=== PATIENT | female | born 2000 | race Caucasian/White ===

== ENCOUNTER 2021-04-29 10:36 | Emergency (ER) | payer OTHER, SELFPAY ==
[2021-04-29 10:53] VITALS: BP 111/78; PULSE 82; RESP 16; TEMP 36.6; O2SAT 99
[2021-04-29 10:55] VITALS: BP 111/78; PULSE 82; RESP 16; TEMP 36.6; O2SAT 99
--- NOTE | 2021-04-29 10:56 | ED.FEMALEGU ---
HPI - Female Genitourinary General Chief complaint: Urogenital-Female Stated complaint: uti Source: patient and RN notes reviewed Limitations: no limitations History of Present Illness HPI Narrative: The patient, previously healthy student, presents with 3-day history of urinary frequency, urgency, hesitancy and dysuria. No fever, low back pain, abdominal pain, N/V, vaginal discharge-but she would like available STD testing. Symptoms are mild, worse with micturition, unrelieved with OTC Azo; her last menstrual cycle was last week. Last UTI was several months ago-that she attributes to after her menses; patient reports sulfa allergy with her last treatment. Related Data Allergies Allergy/AdvReac Type Severity Reaction Status Date / Time amoxicillin Allergy Unknown Verified 04/29/21 10:55 Sulfa (Sulfonamide Allergy Unknown Verified 04/29/21 10:55 Antibiotics) Review of Systems Review of Systems: Narrative: General/Constitutional: No weight loss,fever Eyes: N0: Redness,discharge Ears/Nose/Throat: No: Epistaxis,ear discharge Respiratory: Denies: Hemoptysis Gastrointestinal: No Vomiting, Bleeding-rectal Skin: No Lumps, eruption Neurologic: No Focal Weakness,Sz Hematologic: Denies: Petechiae/Purpura Psychiatric: No: Suicida ideationl All Other Systems: Reviewed and Negative PMFSH Comments At time of signature, agree with nursing past medical, surgical, social and family history. There is no relevant family history pertinent to the presenting complaint Exam Narrative: Exam Narrative: General Appearance: Well appearing, No distress EYE: PERRLA, Conjunctiva clear Ears: External ear normal Nose: Normal nose Mouth/Throat: Normal appearing, Normal lips Neck: Supple Respiratory: Airway patent, No respiratory distress Cardiovascular: RRR Abdomen: Soft, Non-tender, No massess, Musculoskeletal: Full ROM Skin: Warm, Dry Neurological: A&O x3, CN II-X intact Psychiatric: Normal mood, Normal affect Course Vital Signs Vital signs: Vital Signs Temperature 98 F 04/29/21 10:53 Pulse Rate 82 04/29/21 10:53 Respiratory Rate 16 04/29/21 10:53 Blood Pressure 111/78 04/29/21 10:53 Pulse Oximetry 99 04/29/21 10:53 Temperature 98 F 04/29/21 10:55 Pulse Rate 82 04/29/21 10:55 Respiratory Rate 16 04/29/21 10:55 Blood Pressure 111/78 04/29/21 10:55 Pulse Oximetry 99 04/29/21 10:55 MDM - Female Genitourinary Lab Data Labs: Urine Glucose 1+ Reference Range: Negative Urine Bilirubin 2+ Reference Range: Negative Urine Ketone Trace Reference Range: Negative Urine Specific [place] 1.020 Reference Range:1.001-1.035 Urine Blood Trace Reference Range: Negative * * Urine pH 7.0 Reference Range: 5.0-9.0 Urine Protein 3+ Reference Range: Negative Urine Urobilinogen 8.0 Reference Range: 0.2-1.0 Urine Nitrate Positive Reference Range: Negative Urine Leukocyte 3+ Reference Range: Negative Urine Color [place] Reference Range: Yellow Urine Characteristics Cloudy Comment pt took azo
== END 2021-04-29 11:20 | disposition home or self-care (01) ==
PROVIDERS: Emergency Provider Emergency Medicine
DX: N30.90 Cystitis, unspecified without hematuria (principal)
CPT/HCPCS: 81003; 87077; 87086; 87088; 87491; 87591; 87661; 99214; G0463

== ENCOUNTER 2022-10-08 13:02 | Outpatient (CLI) | payer OTHER, SELFPAY ==
[2022-10-08 18:28] LABS: Basophils Percent Auto 0.7 % (0.2-1.2); Eosinophils Absolute Auto 0.1 K/mm3 (0-0.3); Eosinophils Percent Auto 1.2 % (0-4.4); Hemoglobin 13.3 g/dL (12.0-15.0); Immature Granulocyte Absolute 0.01 K/mm3 (0.00-0.031); Immature Granulocyte Percent A 0.2 % (0-0.5); Lymphocytes Absolute Auto 1.86 K/mm3 (0.9-3.2); Lymphocytes Percent Auto 44.9 % (18.3-44.2); Mean Corpuscular HGB Conc 33.3 g/dl (32-36); Mean Corpuscular Volume 87.1 fl (80-100); Mean Platelet Volume 11.2 fl (7.4-10.4); Monocytes Absolute Auto 0.4 K/mm3 (0.1-0.6); Monocytes Percent Auto 10.4 % (2.6-8.5); Neutrophils Absolute Auto 1.8 K/mm3 (1.3-6.7); Neutrophils Percent Auto 42.6 % (45.5-73.1); Platelet Count Result 258 k/mm3 (150-375); Red Blood Count 4.59 M/mm3 (4.2-5.4); Red Cell Distribution Width 12.5 % (11.5-14.5); White Blood Count 4.1 K/mm3 (4.5-10.0)
[2022-10-08 18:48] LABS: Alanine Aminotransferase 14 U/L (6-35); Albumin Level 5.2 g/dL (3.5-5.1); Alkaline Phosphatase 57 U/L (38-126); Anion Gap 18 mmol/L (8-16); Aspartate Amino Transferase 21 U/L (14-36); Bilirubin,Total 0.5 mg/dL (0.2-1.3); Blood Urea Nitrogen 7 mg/dL (7-17); Calcium 9.4 mg/dL (8.4-10.2); Carbon Dioxide 21 mmol/L (22-30); Chloride 103 mmol/L (98-107); Estimated Glomerular Filt Rate > 60; Glucose 103 mg/dL (65-110); Potassium 3.6 mmol/L (3.4-5.0); Sodium 142 mmol/L (137-145)
[2022-10-08 20:25] LABS: Thyroid Stimulating Hormone Reflex 0.926 uIU/mL (0.465-4.68)
== END 2022-10-08 13:03 | disposition home or self-care (01) ==
LOC: ANHGOSHLAB 13:05
PROVIDERS: PCP Emergency Medicine; Visit Provider Emergency Medicine
DX: R42 Dizziness and giddiness (principal)
CPT/HCPCS: 36415; 80053; 84443; 85025

== ENCOUNTER 2022-10-09 13:15 | Outpatient (CLI) | payer OTHER, SELFPAY ==
--- NOTE | 2022-10-09 13:28 | ECG_ITS ---
Measurements Intervals [place] Rate: 60 P: 58 [place]: 119 QRS: 75 QRSD: 80 T: 66 QT: 398 QTc: 401 Interpretive Statements SINUS RHYTHM WITH SHORT [place] INTERVAL BASELINE ARTIFACT- II, III, AVL, AVF BORDERLINE ECG NO PREVIOUS ECG AVAILABLE FOR COMPARISON Electronically Signed On 10-09-2022 14:29:48 ENGINEERING TECHNICAL ANALYST by Filiberto Amador D.O.
== END 2022-10-09 13:16 | disposition home or self-care (01) ==
LOC: ANHLAB 13:28
PROVIDERS: PCP Emergency Medicine; Visit Provider Emergency Medicine
DX: R42 Dizziness and giddiness (principal)
CPT/HCPCS: 93005

== ENCOUNTER 2022-12-05 14:49 | Outpatient (CLI) | payer OTHER, SELFPAY ==
[2022-12-05 19:47] LABS: Basophils Percent Auto 0.7 % (0.2-1.2); Eosinophils Absolute Auto 0.1 K/mm3 (0-0.3); Eosinophils Percent Auto 1.7 % (0-4.4); Hematocrit 37.3 % (37.0-47.0); Hemoglobin 12.4 g/dL (12.0-15.0); Immature Granulocyte Absolute 0.01 K/mm3 (0.00-0.031); Immature Granulocyte Percent A 0.2 % (0-0.5); Lymphocytes Percent Auto 40.1 % (18.3-44.2); Mean Corpuscular HGB Conc 33.2 g/dl (32-36); Mean Corpuscular Volume 87.1 fl (80-100); Mean Platelet Volume 11.3 fl (7.4-10.4); Monocytes Absolute Auto 0.5 K/mm3 (0.1-0.6); Monocytes Percent Auto 11.3 % (2.6-8.5); Platelet Count Result 256 k/mm3 (150-375); Red Blood Count 4.28 M/mm3 (4.2-5.4); Red Cell Distribution Width 12.4 % (11.5-14.5); White Blood Count 4.2 K/mm3 (4.5-10.0)
[2022-12-05 20:46] LABS: Anion Gap 5 mmol/L (8-16); Blood Urea Nitrogen 6 mg/dL (7-17); Carbon Dioxide 28 mmol/L (22-30); Chloride 102 mmol/L (98-107); Estimated Glomerular Filt Rate > 60; Glucose 90 mg/dL (65-110); Potassium 3.6 mmol/L (3.4-5.0); Sodium 135 mmol/L (137-145)
[2022-12-05 21:08] LABS: Thyroid Stimulating Hormone 0.914 uIU/mL (0.465-4.680)
[2022-12-05 22:34] LABS: Iron 121 ug/dL (37-170)
== END 2022-12-05 14:50 | disposition home or self-care (01) ==
LOC: ANHGOSHLAB 14:52
PROVIDERS: PCP Emergency Medicine
DX: R42 Dizziness and giddiness (principal)
CPT/HCPCS: 36415; 80048; 82728; 83540; 84443; 85025

== ENCOUNTER 2023-01-06 15:32 | Outpatient (CLI) | payer OTHER, SELFPAY ==
[2023-01-06 21:23] LABS: Anion Gap 7 mmol/L (8-16); Blood Urea Nitrogen 7 mg/dL (7-17); Calcium 8.9 mg/dL (8.4-10.2); Carbon Dioxide 27 mmol/L (22-30); Chloride 100 mmol/L (98-107); Estimated Glomerular Filt Rate > 60; Glucose 89 mg/dL (65-110); Potassium 4.2 mmol/L (3.4-5.0); Sodium 134 mmol/L (137-145)
[2023-01-06 21:40] LABS: Basophils Absolute Auto 0.1 K/mm3 (0.0-0.1); Basophils Percent Auto 0.8 % (0.2-1.2); Eosinophils Absolute Auto 0.1 K/mm3 (0-0.3); Eosinophils Percent Auto 1.3 % (0-4.4); Hematocrit 38.1 % (37.0-47.0); Hemoglobin 12.3 g/dL (12.0-15.0); Immature Granulocyte Absolute 0.01 K/mm3 (0.00-0.031); Immature Granulocyte Percent A 0.2 % (0-0.5); Lymphocytes Absolute Auto 1.79 K/mm3 (0.9-3.2); Lymphocytes Percent Auto 28.4 % (18.3-44.2); Mean Corpuscular HGB Conc 32.3 g/dl (32-36); Mean Corpuscular Hemoglobin 28.9 pg (26-34); Mean Corpuscular Volume 89.4 fl (80-100); Mean Platelet Volume 11.8 fl (7.4-10.4); Monocytes Absolute Auto 0.5 K/mm3 (0.1-0.6); Monocytes Percent Auto 7.5 % (2.6-8.5); Neutrophils Absolute Auto 3.9 K/mm3 (1.3-6.7); Neutrophils Percent Auto 61.8 % (45.5-73.1); Platelet Count Result 280 k/mm3 (150-375); Red Blood Count 4.26 M/mm3 (4.2-5.4); Red Cell Distribution Width 12.6 % (11.5-14.5); White Blood Count 6.3 K/mm3 (4.5-10.0)
[2023-01-07 10:36] LABS: Iron 113 ug/dL (37-170)
[2023-01-07 11:12] LABS: Ferritin 9.01 ng/mL (6.24-137)
== END 2023-01-06 15:33 | disposition home or self-care (01) ==
LOC: ANHGOSHLAB 15:36
PROVIDERS: PCP Emergency Medicine
DX: R42 Dizziness and giddiness (principal)
CPT/HCPCS: 36415; 80048; 82728; 83540; 84443; 85025

== ENCOUNTER 2023-01-31 10:51 | Emergency (ER) | payer OTHER, SELFPAY ==
--- NOTE | 2023-01-31 10:58 | ED.URI ---
HPI - URI/Sore Throat General Chief Complaint: Upper Respiratory Infection Stated Complaint: sinus congestion Time Seen by Provider: 01/31/23 10:58 Source: patient, RN notes reviewed and old records reviewed Mode of arrival: ambulatory Limitations: no limitations History of Present Illness HPI Narrative: 22-year-old female presents to the [facility] with complaints of sinus congestion and rhinorrhea for 5 days. Has not taken anything for her symptoms States she returned from the [place] recently. Has declined flu and COVID testing. Patient reports that her brother had similar symptoms and received a steroid shot, feels much better Denies any cough, shortness of breath. Denies fevers. Onset (ago): day(s) (5) Related Data Home Medications Medication Instructions Recorded Confirmed escitalopram oxalate 10 mg tablet 20 mg PO DAILY 01/31/23 01/31/23 (Lexapro) Allergies Allergy/AdvReac Type Severity Reaction Status Date / Time amoxicillin Allergy Intermediate Rash Verified 01/31/23 10:59 Sulfa (Sulfonamide AdvReac Severe Anaphylaxis Verified 01/31/23 10:59 Antibiotics) Review of Systems Review of Systems: All systems reviewed & are unremarkable except as noted in HPI and below Constitutional: Constitutional: Reports no additional constitutional complaints Eyes: Eyes: Reports no additional eye complaints ENT: Reports as per HPI, Reports nasal congestion and Reports nasal discharge Cardiovascular: Cardiovascular: Reports no additional cardiovascular complaints, Denies chest pain and Denies dyspnea Respiratory: Respiratory: Reports no additional respiratory complaints, Denies chest congestion, Denies cough and Denies dyspnea Gastrointestinal: Gastrointestinal: Reports no additional gastrointestinal complaints, Denies abdominal pain, Denies nausea and Denies vomiting Musculoskeletal: Musculoskeletal: Reports no additional musculoskeletal complaints Integumentary/Breasts: Skin/Breast: Reports system reviewed and no additional complaints, except as docu Neurologic: Reports system reviewed and no additional complaints, except as documented Psychiatric: Psychiatric: Reports no additional psychiatric complaints Allergic/Immunologic: Allergic/Immunologic: Reports no additional allergic/immunologic complaints PMFSH Past Medical History Medical History Depression with anxiety Surgical History Surgical History (Updated 10/07/22 @ 15:37 by [facility]) [place] teeth removed Family History Family History Grandparent Melanoma Breast cancer Lung cancer Heart disease Depression Mother Asthma Depression Social History Social History Smoking status: Current some day smoker Tobacco type: e-cigarettes/vaping Alcohol intake: never Substance use: current Substance use type: marijuana Comments At the time of my signature, I reviewed and agree with the nursing past medical, surgical, social, and family history. There is no relevant family history pertinent to the patient complaint. Exam Const: General: cooperative, healthy appearing, comfortable, no acute distress, well developed, alert and well nourished Nutritional Appearance: well nourished Orientation/consciousness: patient oriented x3 Limitations: no limitations HENMT: Head: normal to inspection Ears: hearing grossly normal bilaterally and external ears normal Face/Nose/Sinus: Normal external nose present, Normal nares present, Normal nasal mucous membranes and turbinates present, Nasal discharge present clear bilateral, normal facial exam, sinuses nontender, face symmetric, No ecchymosis and No erythema Face and sinus: normal facial exam Mouth: Yes Normal oral and palatal mucosa present, Yes lip normal and Yes moist mucous membranes Throat: posterior
[2023-01-31 11:06] VITALS: BP 122/81; PULSE 91; RESP 20; TEMP 36.8; O2SAT 99
== END 2023-01-31 11:10 | disposition home or self-care (01) ==
PROVIDERS: Emergency Provider Nurse Practitioner; PCP Emergency Medicine
DX: J01.40 Acute pansinusitis, unspecified (principal); F17.290 Nicotine dependence, other tobacco product, uncomplicated; F12.90 Cannabis use, unspecified, uncomplicated; F41.9 Anxiety disorder, unspecified; F32.A Depression, unspecified
CPT/HCPCS: 99213; G0463

== ENCOUNTER 2024-02-24 10:43 | Emergency (ER) | payer OTHER, SELFPAY ==
[2024-02-24 10:49] VITALS: BP 104/73; PULSE 85; RESP 16; TEMP 37.3; O2SAT 98
--- NOTE | 2024-02-24 11:25 | ED.URI ---
HPI - URI/Sore Throat General Chief Complaint: Upper Respiratory Infection Stated Complaint: Fever/Sore Throat/Congestion Time Seen by Provider: 02/24/24 11:25 History of Present Illness HPI Narrative: 23 y/o female presented for c/o sinus congestion, sore throat, cough and subjective fever. Onset 4 days. Started with left ear pain and decreased hearing yesterday. Denies sob, wheezing, n/v/d. Took ibuprofen for headache. Related Data Home Medications Medication Instructions Recorded Confirmed escitalopram oxalate 10 mg tablet 20 mg PO DAILY 01/31/23 02/24/24 (Lexapro) Allergies Allergy/AdvReac Type Severity Reaction Status Date / Time amoxicillin Allergy Intermediate Rash Verified 02/24/24 11:30 Sulfa (Sulfonamide AdvReac Severe Anaphylaxis Verified 02/24/24 11:30 Antibiotics) Review of Systems Review of Systems: CONSTITUTIONAL: Denies body aches, fever, chills, or sweats. EYES: Denies visual changes, redness, or discharge. ENT: Reports rhinorrhea, congestion, sore throat, left otalgia. CARDIOVASCULAR: Denies chest pain, palpitations, or edema. RESPIRATORY: Denies dyspnea. GASTROINTESTINAL: Denies abdominal pain, nausea, vomiting, or diarrhea. SKIN: Denies rash, itching, or wounds. MUSCULOSKELETAL: Denies back pain, joint pain, or myalgia. NEUROLOGIC: Denies headache PMFSH Past Medical History Medical History Depression with anxiety Surgical History Surgical History [place] teeth removed Family History Family History Grandparent Melanoma Breast cancer Lung cancer Heart disease Depression Mother Asthma Depression Social History Social History Smoking status: Current some day smoker Tobacco type: e-cigarettes/vaping Alcohol intake: never Substance use: current Substance use type: marijuana Exam Narrative: GENERAL: mildly Ill-appearing, no acute distress. EYES: conjunctivae clear ENT: Mucous membranes moist. nasal congestion. TMs pearly roger with normal light reflex bilaterally; no tragal tenderness. Oropharynx not erythematous without lesions. Tonsils not enlarged and without exudate. No drooling, no hoarseness, no trismus, uvula midline. No tripod positioning, hot potato voice, or soft palate swelling. NECK: Supple. No lymphadenopathy CHEST: Clear to auscultation, breath sounds equal. No respiratory distress, speaks in full sentences. HEART: Regular rate and rhythm. No murmur heard. SKIN: Warm, dry, no rash. NEURO: Alert and oriented x3. Course Course Emergency Course: Patient is aware of diagnosis, understands and agrees to treatment plan. Anticipatory guidance given. Patient agrees to follow-up as directed and is aware of reasons to seek care at the emergency department. Portions of this record may have been created with voice recognition software Level of Care: Express Care Visit Vital Signs Vital signs: Vital Signs Temperature 99.1 F 02/24/24 10:49 Pulse Rate 85 02/24/24 10:49 Respiratory Rate 16 02/24/24 10:49 Blood Pressure 104/73 02/24/24 10:49 Pulse Oximetry 98 02/24/24 10:49 Oxygen Delivery Room Air 02/24/24 10:49 Temperature 99.1 F 02/24/24 10:49 Pulse Rate 85 02/24/24 10:49 Respiratory Rate 16 02/24/24 10:49 Blood Pressure 104/73 02/24/24 10:49 Pulse Oximetry 98 02/24/24 10:49 Oxygen Delivery Room Air 02/24/24 10:49 MDM - URI/Sore Throat MDM Narrative Medical decision making narrative: Neg flu, covid, strep result reviewed with pt. Advise supportive treatments. Patient is appropriate for outpatient treatment and follow-up. Differential Diagnosis Differential diagnosis: Likely upper respiratory infection, otitis media, sinusitis, viral infection, influenza and ph
== END 2024-02-24 11:46 | disposition home or self-care (01) ==
PROVIDERS: Emergency Provider Nurse Practitioner Family
DX: J06.9 Acute upper respiratory infection, unspecified (principal); Z20.822 Contact with and (suspected) exposure to COVID-19; F17.290 Nicotine dependence, other tobacco product, uncomplicated; F12.90 Cannabis use, unspecified, uncomplicated; F41.8 Other specified anxiety disorders
CPT/HCPCS: 87081; 87426; 87804; 87880; 99213; G0463